=== PATIENT | male | born 2005 | race Caucasian/White ===

== ENCOUNTER 2025-03-28 19:29 | Emergency (ER) | payer MEDICAID, SELFPAY ==
[2025-03-28 19:30] VITALS: BMI 24.6
[2025-03-28 19:55] VITALS: BP 102/63; PULSE 127; RESP 18; TEMP 38.9; O2SAT 96
--- NOTE | 2025-03-28 20:23 | XR_ITS ---
Examination: CT abdomen with intravenous contrast CT pelvis with intravenous contrast 2-D coronal reconstructions 2-D sagittal reconstructions Date and time of exam:March 28, 2025 10:36 PM INDICATIONS: Onset of abdominal pain beginning 2 days ago. CTDI: vol (mGy) 6.71 DLP: (mGycm) 410 Technique: Multiple axial sections of the abdomen and pelvis have been obtained. 64 slice high-resolution scanner used. 3 mm axial sections have been obtained, post intravenous injection of 50 cc Isovue 370 2-D sagittal, coronal reconstructions obtained. Low dose protocols were performed. One or more of the following dose reduction techniques were used; automated exposure control, adjustment of the mA and/or KV according to patient size, use of iterative reconstruction technique. Findings: Mild hepatosplenomegaly No gallstones No pancreatic or adrenal mass No renal or ureteral calculi, no hydronephrosis Aorta normal size Normal appendix No bowel obstruction No diverticulitis No prostatomegaly Urinary bladder intact Intact osseous structures IMPRESSION: No acute process in the abdomen or pelvis
--- NOTE | 2025-03-28 20:24 | XR_ITS ---
Examination: AP chest single view TECHNIQUE: Upright AP chest single view. Exam date 9: March 28, 2025, 2041 hours INDICATIONS: Shortness of breath fever today. FINDINGS: Normal heart size No lobar pneumonia. The osseous structures are intact IMPRESSION: No pneumonia identified
[2025-03-28] MEDS: SODIUM CHLORIDE 0.9% 1000 ML 1,000 ML 999 ML IV (20:58)
[2025-03-28] MEDS: cefTRIAXone/D5w 1gm IV premix 1 GM/50 ML BAG IV (20:58)
[2025-03-28 20:59] VITALS: TEMP 38.9
[2025-03-28] MEDS: KETOROLAC INJ 30 MG/ML VIAL IVP (20:59)
[2025-03-28] MEDS: ONDANSETRON INJ 2 MG/ML INJ 2 ML 4 MG IV (20:59)
[2025-03-28] MEDS: ACETAMINOPHEN 500 MG TABLET 1000 MG PO (20:59)
[2025-03-28 21:06] LABS: Lactate (Lactic Acid) 1.3 mMol/L (0.4-2.0)
[2025-03-28 21:07] LABS: Basophils % (Auto) 0 % (0-2.5); Eosinophils % (Auto) 0 % (0-10); Hematocrit 48.8 % (41.0-53.0); Hemoglobin 17.6 g/dL (13.5-16.0); Immature Granulocytes % (Auto) 0 % (0-0); Immature Granulocytes Auto 0.03 Thou/mm3 (0.00-0.00); Lymphocytes # (Auto) 1.3 Thou/mm3 (1.0-5.0); Lymphocytes % (Auto) 13 % (10-50); Mean Corpuscular HGB Conc 36.1 g/dl (31.0-37.0); Mean Corpuscular Hemoglobin 32.4 pg (25.0-35.0); Mean Corpuscular Volume 90 fL (80-100); Monocytes # (Auto) 0.9 Thou/mm3 (0.0-0.8); Monocytes % (Auto) 9 % (0-12); Neutrophils # (Auto) 8.2 Thou/mm3 (1.8-7.7); Neutrophils % (Auto) 78 % (37-80); Nucleated Red Blood Cell % 0 /100 WBC (0); Platelet Count 165 Thou/mm3 (140-440); RDW Standard Deviation 41.5 fL (35.1-43.9); Red Blood Count 5.43 Miln/mm3 (4.50-5.90); White Blood Count 10.5 Thou/mm3 (4.5-11.0)
[2025-03-28 21:27] VITALS: BP 129/70; PULSE 102; RESP 25; TEMP 38.1; O2SAT 94
[2025-03-28 21:35] LABS: Collection Type, Urine Clean Catch; Squamous Epithelial Cell,Urine 0 /hpf (0-5)
[2025-03-28 22:01] LABS: Bilirubin,Urine Negative (Negative); Blood,Urine 2+ (Negative); Clarity,Urine Clear (Clear/Hazy); Color,Urine Yellow (Lt Yel-Yel); Culture Indicated,Urine Not Indicated; Glucose, Urine Negative (Negative); Ketones,Urine Negative (Negative); Leukocyte Esterase,Urine Negative (Negative); Nitrite,Urine Negative (Negative); Protein,Urine Trace (Neg - Trace); RBC,Urine 23 /hpf (0-3); Specific Gravity,Urine 1.026 (1.001-1.035); Urobilinogen,Urine Negative mg/dL (0.0-1.0); WBC,Urine 3 /hpf (0-5)
[2025-03-28 22:04] VITALS: TEMP 37
[2025-03-28 22:22] LABS: Alanine Aminotransferase 36 U/L (10-49); Albumin, Serum 4.6 gm/dL (3.5-5.0); Albumin/Globulin Ratio 2.3 (1.2-2.2); Alkaline Phosphatase 95 U/L (46-116); Anion Gap 8 (7-16); Aspartate Amino Transferase 24 U/L (0-34); BUN/Creatinine Ratio 11 Ratio (12-20); Bilirubin,Total 1.1 mg/dL (0.3-1.2); Blood Urea Nitrogen 10 mg/dL (9-23); Calcium 9.3 mg/dL (8.3-10.6); Calcium (Corrected) 9.3 mg/dL (8.5-10.1); Carbon Dioxide 27.2 mMol/L (20.0-31.0); Chloride 99 mMol/L (98-107); Creatinine (Component) 0.9 mg/dL (0.6-1.3); Estimated Creatinine Clearance 149.2 mL/min (>60); Glucose 106 mg/dL (74-106); Lipase 24 U/L (12-53); Osmolality,Calculated 267 (275-295); Potassium 3.6 mMol/L (3.4-5.1); Procalcitonin 0.22 ng/ml (0.0-0.49); Sodium 134 mMol/L (136-145); Total Protein 6.6 gm/dL (5.7-8.2); eGFR > 60 See Note
[2025-03-28 23:18] VITALS: BP 120/79; PULSE 98; RESP 16; TEMP 36.8; O2SAT 97
[2025-03-28 23:40] LABS: Amphetamine/Methamp Scrn,U Negative (Negative); Barbiturate Screen,Urine Negative (Negative); Benzodiazepines Screen,Urine Negative (Negative); Benzoylecgonine Screen, Ur Negative (Negative); Fentanyl Screen,Urine Negative (Negative); Opiate Screen,Urine Negative (Negative); THC Screen,Urine Negative (Negative)
--- NOTE | 2025-03-29 01:17 | EDNOTE_ITS ---
<Statement entered by Corrie Aguillon MD - 03/29/25 05:23> As co-signing physician, I was present and available for consult prn. I concur with the plan and care as documented by the midlevel provider. Nausea/Vomit./Diarrhea-RME/HPI General Chief complaint: Abdominal Pain Stated complaint: VOMITING, ABD AND BACK PAIN Time Seen by Provider: 03/28/25 20:22 Arrival date/time: 03/28/25 19:29 19M with history of autism presents to ED with caregiver for several days of N/V, ab/back pain, and possibly diarrhea and patient keeps running to the bathroom. Patient is mostly non-verbal but can say some words. Limitations: no limitations Related Data Previous Rx's ?Medication ?Instructions ?Recorded ondansetron 4 mg disintegrating 4 mg PO Q8H PRN nausea and 03/28/25 tablet vomiting #10 tabs Allergies Allergy/AdvReac Type Severity Reaction Status Date / Time No Known Allergies Allergy Verified 03/28/25 19:30 Review of Systems Review of Systems Systems Reviewed: All systems reviewed, normal except as documented Constitutional Constitutional: Reports system reviewed and no additional complaints, except as documented, Denies fever(s) and Denies headache(s) ENT Ears, Nose, Mouth, and Throat: Denies disequilibrium and Denies headache(s) Cardiovascular Cardiovascular: Reports system reviewed and no additional complaints, except as documented, Denies chest pain and Denies dyspnea Respiratory Respiratory: Reports system reviewed and no additional complaints, except as documented, Denies cough and Denies dyspnea Gastrointestinal Gastrointestinal: Reports system reviewed and no additional complaints, except as documented, Reports as per HPI, Reports abdominal pain, Reports diarrhea, Reports nausea and Reports vomiting Neurologic Neurologic: Reports system reviewed and no additional complaints, except as documented, Denies confusion, Denies disequilibrium and Denies headache(s) Psychiatric Psychiatric: Denies confusion Past Medical History Past Medical History CARDIAC: Negative Cardiac Disorders or Congestive Heart Failure RESPIRATORY: Negative Chronic Obstructive Pulmonary Disease (COPD) or Asthma GENITOURINARY: Negative Renal Disease ENDOCRINE: Negative Diabetes Mellitus Type 1 or Diabetes Mellitus Type 2 HEMATOLOGIC: Negative Sickle Cell Disease Social History SMOKING STATUS: Never smoker ED Exam General Limitations: Present no limitations General appearance: Present alert and in no apparent distress Head Head exam: Present atraumatic Eye Eye exam: Present normal appearance, PERRL and EOMI ENT ENT exam: Present normal exam, normal oropharynx and mucous membranes moist Neck Neck exam: Present normal inspection, full ROM and trachea midline Chest Chest inspection: Present normal inspection and symmetric chest wall rise Respiratory Respiratory exam: Present normal lung sounds bilaterally Cardiovascular Cardiovascular exam: Present regular rate, normal rhythm and normal heart sounds Abdominal Exam Abdominal exam: Present soft and normal bowel sounds Extremities Exam Extremities exam: Present normal inspection and full ROM Back Exam Back exam: Present normal inspection and full ROM Neurological Exam Neurological exam: Present alert, oriented X3 and CN II-XII intact Psychiatric Psychiatric exam: Present normal affect and normal mood Skin Skin exam: Present warm, dry, intact and normal color Course Quality Measures none Orders Category Date Time Status Bedside COVID-19 Antigen Test NOW Care 03/28/25 20:24 Completed Bedside Influenza A&B Antigen Test NOW Care 03/28/25 20:[address] Screening NOW Care 03/28/25 20:23 Completed Insert IV NOW Care 03/28/25 20:[address] abdomen pelvis w con Stat Exams 03/28/25 20:23 Completed XR chest 1V portable Stat Exams 03/28/25 20:24 Completed Blood Culture (Lab) Stat Lab 03/28/25 20:43 Received CBC Stat Lab 03/28/25 20:40 Completed CMP [Comprehensive Metabolic Panel] Stat Lab 03/28/25 20:40 Completed Drug Screen,Urine Stat Lab 03/28/25 21:04 Completed Lactate (Lactic Acid) Stat Lab 03/28/25 20:40 Completed Lipase Stat Lab 03/28/25 20:40 Completed Procalcitonin Stat Lab 03/28/25 20:40 Completed Urinalysis, C/S if Indicated Stat Lab 03/28/25 21:04 Completed Acetaminophen Tab [Tylenol ES Tab] Med 03/28/25 20:23 Discontinued 1,000 mg PO X1 ONE Ketorolac Inj [Toradol Inj] Med 03/28/25 20:23 Discontinued 30 mg IVP X1 ONE Ondansetron Inj [Zofran Inj] Med 03/28/25 20:25 Discontinued 4 mg IV X1 ONE Sodium Chloride 0.9% 1000 ml [Ns] 1,000 ml Med 03/28/25 20:23 Discontinued IV 999 mls/hr cefTRIAXone/D5w 1gm IV premix [Rocephin/D5w 1gm IV Med 03/28/25 20:24 Discontinued premix] 1 gm in 50 ml IV X1 Vital Signs Vital signs: Vital Signs Temperature 102.1 F H 03/28/25 19:55 Pulse Rate 127 H 03/28/25 19:55 Respiratory Rate 18 03/28/25 19:55 Blood Pressure 102/63 03/28/25 19:55 Pulse Oximetry (%) 96 03/28/25 19:55 Oxygen Delivery Method Room Air 03/28/25 19:55 O2 at 96% on RA and WNLs Nausea/Vomiting/Diarrhea MDM Narrative MDM Narrative:: 19M with history of autism presents to ED with caregiver for several days of N/V, ab/back pain, and possibly diarrhea and patient keeps running to the bathroom. Patient is mostly non-verbal but can say some words. Physical exam reveals no obvious ab tenderness, but possibly some guarding. Normal WOB. Patient is febrile, but does not appear toxic. Sepsis alert called. CT no acute abnormalities. CXR normal. No leukocytosis. CMP unremarkable except for mildly low sodium. Procal/lactate normal. Swabs neg. Likely viral gastroenteritis. PO challenge passed. 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 Social determinants that could affect healthcare access:: mental health Patient has the following chronic illnesses:: autism How is presenting disease/condition affected by chronic disease/condition?: exacerbated by Evaluation data The following diagnostics were reviewed and interpreted by me:: lab results and radiology exam(s) Lab and/or radiology exams considered but not ordered:: ordered Interpretation Summary: above Medications / Prescriptions Medications / Prescriptions considered but not ordered:: ordered Medication administrations:: Medication Administration History Discontinued Medications Acetaminophen (Acetaminophen 500 Mg Tablet) 1,000 mg PO X1 ONE Stop: 03/28/25 20:24 Last Admin: 03/28/25 20:59 Dose: 1,000 mg Documented By: KLEBER Sodium Chloride (Ns) 1,000 mls @ 999 mls/hr IV .Q1H1M ONE Stop: 03/28/25 21:23 Last Infusion: 03/28/25 22:01 Dose: Infused Documented By: Admin: 03/28/25 20:58 Dose: 999 mls/hr Documented By: KLEBER Ceftriaxone Sodium/Dextrose (Rocephin/D5w 1gm Iv Premix) 1 gm in 50 mls @ 100 mls/hr IV X1 ONE Stop: 03/28/25 20:53 Last Infusion: 03/28/25 21:33 Dose: Infused Documented By: Admin: 03/28/25 20:58 Dose: 100 mls/hr Documented By: KLEBER Ketorolac Tromethamine (Ketorolac Inj 30 Mg/Ml Vial) 30 mg IVP X1 ONE Stop: 03/28/25 20:24 Last Admin: 03/28/25 20:59 Dose: 30 mg Documented By: KLEBER Ondansetron HCl (Ondansetron Inj 2 Mg/Ml Inj 2 Ml) 4 mg IV X1 ONE; Protocol Stop: 03/28/25 20:26 Last Admin: 03/28/25 20:59 Dose: 4 mg Documented By: KLEBER above Consultations Consultation(s) initiated? (list below): No Diagnosis Nausea Differential Diagnosis: traveler's diarrhea, food poisoning, gastroenteritis, clostridium difficile infection, drug-induced nausea and vomiting and dehydration Most likely diagnosis given after review of the tests above:: gastroenteritis Admission Indicated Admission indicated?: not indicated Admission Request Was there a request for admission?: No Disposition Plan Disposition Plan: Discharge Discharge Attestation Discharge Attestation: The patient and all family members were given an opportunity to ask questions and understood the discharge instructions. Discharge instructions specifically effects, indications for sooner follow up or return to the emergency department, and the expected course of current diagnosis. Patient condition: Stable Discharge Plan Plan Patient Disposition: HOME (Self Care) Discharge Disposition comment: Stable Prescriptions/Referrals Prescriptions/Med Rec: New ondansetron 4 mg tablet,disintegrating 4 mg PO Q8H PRN (Reason: nausea and vomiting) Qty: 10 0RF Referrals: Tera Guerrier MD [Primary Care Provider] - In 1 week Problem List Clinical Impression: Gastroenteritis Patient/Caregiver Discharge Instructions Education Materials: ED Diarrhea, Viral (Adult) Additional Instructions: Please follow-up with PCP within 24-48 hours and return immediately if symptoms worsen. Ibuprofen/Tylenol can be used simultaneously for greater fever/pain control. Keep hydrated. Advance diet as tolerated. Print Language: Cuban Stand Alone Forms: Patient Portal Info Letter VLADIMIR/MOLLY Supervising Physician VLADIMIR/MOLLY Supervising Physician: Dr. Aguillon
== END 2025-03-28 23:27 | disposition home or self-care (01) ==
PROVIDERS: Physician Assistant; Emergency Provider Emergency Medicine; PCP Family Medicine
DX: K52.9 Noninfective gastroenteritis and colitis, unspecified (principal); R06.02 Shortness of breath
CPT/HCPCS: 36415; 71045; 74177; 80053; 80307; 81001; 83605; 83690; 84145; 85025; 87040; 87400; 87811; 99285; A4649; J0696; J1885; J2405; J7030; Q9967; A9270